=== PATIENT | female | born 1975 | race Caucasian/White ===

== ENCOUNTER 2016-09-03 20:14 | Emergency (ER) | payer BC, MEDICAID ==
[~2016-09-03] VITALS: Ht 162.6 cm; Wt 77.0 kg
[2016-09-03 20:14] VITALS: Ht 162.6 cm; Wt 77.0 kg
[~2016-09-03 20:14] MED LIST: ALPR1TAB2 PO; BUTA-253 PO; IBUP-1724 PO; LIRA0.6P PO; ONDA4TAB7 PO
--- NOTE | 2016-09-03 20:26 | ERPDOC ---
Departure Disposition Decision Date: Sep 03, 2016 Disposition Decision Time: 20:27 Disposition: 01 DISCHARGED HOME, SELF-CARE Impression Impression Impression: Primary Impression: Carpal tunnel syndrome on both sides Additional Impressions: Tendinitis of extensor tendon of left hand Tendinitis of extensor tendon of right hand Severity: Moderate Condition: Improved Seen By: Physician only Referrals: MARIA EUGENIA BELLO (Family) Patient Instructions: Carpal Tunnel Syndrome (GEN), Carpal Tunnel Syndrome Exercises (GEN) Problems/Meds/Labs Reviewed?: Yes Medications reviewed and manag: Yes Additional Instructions: Meloxicam 15 mg, one tablet daily for baseline pain control Use Tylenol up to 1000 mg 4 times daily in addition for pain Wear wrist braces at all times, both sleeping and for activities. May remove for bathing daily Follow up with your doctor in one week for recheck Follow up care ordered?: Yes Mental Status: Alert Scripts Meloxicam (Meloxicam) 15 Mg Tablet 15 MG PO DAILY, #30 TAB Prov: MIREILLE TRUJILLO MD 09/03/16 HPI General Chief Complaint: Upper Extremity Pain Stated Complaint: HAND PAIN Time Seen by Provider: 20:15 Source: patient Exam Limitations: no limitations HPI Hand/Forearm Initial Comments 4 day history of bilateral carpal tunnel pain with radiation and burning as well as paresthesia into the fingertips and up the lateral aspect of the arm. Patient works as a supplier specialist, as well as epigastric, does a lot of gripping and extending of the fingers as well as extensive work on a keyboard. Occurred At: home Onset: Gradual Severity: moderate Location: bilateral: forearm, wrist 1 - Radiation 2 - Radiation 1 - Pain with burning 2 - Pain with burning 3 - Radiation 4 - Radiation Associated Symptoms: pain with extension, pain with flexion, pain with grasp, DENIES: bruising, numbness, pallor, red streaks, redness, swelling, weakness Allergies: Coded Allergies: acetaminophen (Verified Allergy, Severe, HIVES, 11/05/15) hydrocodone (Verified Allergy, Severe, HIVES, 11/05/15) Past History Patient Surgical History partial hysterectomy total hysterectomy cholecystectomy Past Medical History Metabolic: diabetes, hypercholesterolemia, hypertension Respiratory: asthma GI: gallbladder disease Musculoskeletal: rheumatoid arthritis Integumentary: psoriasis Psychological: anxiety Surgical History General: gallbladder Reproductive/: hysterectomy Family History Family PMH: FOUND: CAD, [place] Social History Tobacco Usage: smoke # of Packs/Tins per Day: 0.5 Alcohol Usage: none Drug Usage: none IV Drug Use: No Sexuality: male partner Residence: home Review of Systems Constitutional Constitutional: DENIES: appetite decrease, appetite increase, chills, dizziness , fever, weakness ENMT Ears: DENIES: pain Hearing: DENIES: hearing loss, tinnitus Balance: DENIES: vertigo Mouth/Throat: DENIES: change in swallowing, change in voice, hoarsness, painful swallowing, sore throat Cardiovascular Cardiac: DENIES: chest pain, dyspnea on exertion Rhythm/Rate: DENIES: irregular beat, palpitations, tachycardia Vascular: DENIES: pedal edema Pulmonary Respiratory: DENIES: cough, dyspnea, pleuritic chest pain GI Upper Abdomen: DENIES: dysphagia, heartburn/indigestion, nausea, pain, vomiting Lower Abdomen: DENIES: blood in stool, constipation, diarrhea, pain General: DENIES: burning, dysuria, frequency, pain, urgency Musculoskeletal General: cramps, pain, tenderness, DENIES: joint pain, joint swelling, weakness Integumentary Skin: DENIES: rash, sores Exam General General Nourishment: well nourished, well developed, appears stated age, no acute distress General Body Habitus: well groomed Vital Signs: RN Vital Signs have been reviewed: Yes Height (Feet): 5 Height (Inches): 5.00 [place]rak Hand/Forearm Comments Patient has tenderness in the bilateral carpal tunnel, palpation over this area reproduces the patient's symptoms. Symptoms are also reduced with passive wrist extension, increased with passive Patient has tenderness at the insertion of the extensor tendons at the elbow as well, and palpation reproduces the lateral forearm pain. Patient is neurovascularly intact, good cap refill, inch of motion sensation he flexes in the extremities, pulses. Neurologic (brief) Neurological Brief: FOUND: CN w/o gross def to obs, gait w/o gross def to obs, motor-no gross deficits, sensory-no gross deficits, NOT FOUND: ataxia Neurologic RN Documented GCS Eye Opening: Verbal: Motor: Total: Progress Progress Progress Patient appears to have combined carpal tunnel bilaterally with extensor tendinitis use. Patient is given Toradol, Norflex, dexamethasone IM, placed in wrist splints, struck did on home care with ox cam 15 mg, and Tylenol when necessary MIREILLE TRUJILLO MD Sep 03, 2016 20:26
[2016-09-03] MEDS ORDERED: MELO-267 PO (20:30)
[2016-09-03] MEDS ORDERED: KETOROLAC 30mg/ml INJECTION IM ONE (20:30)
[2016-09-03] MEDS ORDERED: DEXAMETHASONE 4mg/ml - 1ml INJECTION IM ONE (20:30)
[2016-09-03] MEDS ORDERED: ORPHENADRINE 60mg/2ml INJECTION IM ONE (20:30)
[2016-09-03] MEDS ORDERED: KETOROLAC 60mg/2ml INJECTION IM ONE (21:00)
[2016-09-03 21:02] VITALS: BP 117/75; PULSE 74; RESP 15; TEMP 97.1; O2SAT 97
--- NOTE | 2016-09-03 21:02 | NUR ---
DISCHARGE WRITTEN INSTRUCTIONS WITH [facility] REVIEWED AND SENT WITH PT. PT VERBALIZES UNDERSTANDING OF DI AND MEDICATION, DENIES QUESTIONS. PT AMBULATES OUT OF ER WITH STEADY GAIT AT THIS TIME.
== END 2016-09-03 21:02 | disposition home or self-care (01) ==
LOC: ED 20:14
DX: G56.03 Carpal tunnel syndrome, bilateral upper limbs (principal); M77.9 Enthesopathy, unspecified
CPT/HCPCS: 96372; 99283; J1100; J1885; J2360

== ENCOUNTER 2016-10-24 15:28 | Emergency (ER) | payer MEDICAID ==
[~2016-10-24] VITALS: Ht 162.6 cm; Wt 77.8 kg
[~2016-10-24 15:28] MED LIST changes: -ONDA4TAB7 PO
[2016-10-24 15:32] VITALS: Ht 162.6 cm; Wt 77.8 kg
[2016-10-24] MEDS ORDERED: HYDROMORPHONE 2mg/ml INJECTION IM ONE (16:00)
[2016-10-24] MEDS ORDERED: ORPHENADRINE 60mg/2ml INJECTION IM ONE (16:00)
--- NOTE | 2016-10-24 16:04 | ERPDOC ---
Departure Disposition Decision Date: October 24, 2016 Disposition Decision Time: 16:33 (ALVINO,ADEEL N [employer]ER) Disposition: 01 DISCHARGED HOME, SELF-CARE Impression Impression (ALVINO,ADEEL Arreaga APRN) Impression: Primary Impression: Migraine Qualified Codes: G43.909 - Migraine, unspecified, not intractable, without status migrainosus Severity: Moderate (NOLEEANNE,ADEEL N [employer]ER) Condition: Stable Seen By: Mid-level only (CALLIEADEEL APRN) Referrals: MARIA EUGENIA BELLO (Family) Patient Instructions: Migraine Headache (ED) Problems/Meds/Labs Reviewed?: Yes Medications reviewed and manag: Yes (NOLEEANNE,ADEEL N [employer]AKER) Additional Instructions: Go home and rest in a quiet and dark room. Make sure to monitor your blood sugars at home. If you have any further issues/concerns then return to Er. Follow up care ordered?: Yes Mental Status: Alert (NOLEEANNE,ADEEL N [employer]) HPI - Headache General Chief Complaint: Headache Stated Complaint: HEADACHE,SHAKING Time Seen by Provider: 15:53 Source: patient Exam Limitations: no limitations (ALVINO,ADEEL N [employer]ER) Time Seen by Provider: 15:53 (ONEL GARCIA DO) HPI - Headache Initial Comments She has a history of migraines. Woke up with a headache this morning. Did take some Ibuprofen this morning and then went to go enroll her daughter in college. She did go eat lunch at [employer] and while she was there she was having some shaking which concerned her. She is diabetic but is not use insulin. She did eat and is feeling better overall. She denies any fever or chills. This headache is like her usual headaches. Occurred At: home Onset: Gradual Duration: 4-6 hrs Severity/Quality: moderate Location: frontal Prior Headaches/Recent Trauma: no recent headache/trauma, occasional headaches Associated Symptoms: DENIES: confusion, facial pain, fatigue, fever/chills, flushing, loss of consciousness, nasal congestion, nasal drainage, nausea/ vomiting, numbness in legs/feet, rash, seizures, sinus infection, stiff neck, vision changes, weakness Hx of Similar Symptoms: No (NOLD,ADEEL N [employer]ER) Allergies: Coded Allergies: acetaminophen (Verified Allergy, Severe, HIVES, 11/05/15) hydrocodone (Verified Allergy, Severe, HIVES, 11/05/15) Past History Patient Surgical History partial hysterectomy total hysterectomy cholecystectomy (NOLD,ADEEL N [employer]ER) Past Medical History Metabolic: diabetes, hypercholesterolemia, hypertension Respiratory: asthma GI: gallbladder disease Musculoskeletal: rheumatoid arthritis Integumentary: psoriasis Psychological: anxiety (NOLD,ADEEL N [employer]ER) Surgical History General: gallbladder Reproductive/: hysterectomy (NOLD,ADEEL N [employer]ER) Family History Family PMH: FOUND: CAD, [place] (NOLD,ADEEL N [employer]AKER) Social History # of Packs/Tins per Day: 0.5 Sexuality: male partner (NOLD,ADEEL N [employer]) Review of Systems Constitutional Constitutional: DENIES: chills, dizziness, fatigue, fever, weakness (NOLD, ADEEL N [employer]ER) Eyes Vision: DENIES: blurring, double vision (NOLD,ADEEL N [employer]ER) ENMT Ears: DENIES: drainage, pain Sinuses: DENIES: congestion, rhinorrhea Mouth/Throat: DENIES: painful swallowing, scratchy throat, sore throat (NOLD, ADEEL N [employer]ER) Cardiovascular Cardiac: DENIES: chest pain, orthopnea Rhythm/Rate: DENIES: irregular beat, palpitations (NOLD,ADEEL N [employer]ER) Pulmonary Respiratory: DENIES: cough, dyspnea, sputum (NOLD,ADEEL N [employer]ER) GI Upper Abdomen: DENIES: nausea, pain, vomiting Lower Abdomen: DENIES: constipation, diarrhea, pain (NOLD,ADEEL N [employer]ER) Integumentary Skin: DENIES: rash (NOLD,ADEEL N [employer]ER) Neurological General: headache, DENIES: numbness, tingling, weakness (NOLD,ADEEL N [employer]) Physical Exam General General Nourishment: well nourished, well developed, appears stated age, no acute distress, adult General Body Habitus: well groomed (NOLD,ADEEL N [employer]) Vitals and Pain First Documented Vital Signs Date Time Temp Pulse Resp B/P Pulse Ox O2 Delivery O2 Flow Rate FiO2 10/24/16 15:32 98.1 75 15 122/73 96 Room Air (ONEL GARCIA DO) Vitals and Pain Weight: Kilograms: 77.800 Height (feet): 5 Height (inches): 4.00 Triage Pain Scale: (ADEEL DE OLIVEIRA APRN) RN VS reviewed by Provider: Yes (ADEEL DE OLIVEIRA APRN) Normal Exams: Neck: Full range of motion, without adenopathy, JVD, bruits or thyromegaly Chest/Resp: Clear all jackson, with good airflow, and symmetry bilaterally CV: Regular rate and rhythm, without murmur or gallop, Pulses 2+ all extremities, capillary refill, <2 seconds all ext., no pedal edema noted Abdomen: Bowel sounds positive, soft, non-tender, non-distended, no hepatosplenomegaly, masses or bruits noted Lymphatic: No lymphadenopathy, or lymphedema noted Integumentary: No rashes, hives, or bruising noted Neurologic: Patient is alert, and oriented Psychiatric: Patient exhibits, appropriate attention, emotion and affect (ADEEL DE OLIVEIRA APRN) Differential Diagnoses Considering: Headache, Headache - Migraine, Headache - Tension/Muscle, Hypertensive Emergency, Sinusitis - Sphenoid, Sinusitis - Maxillary, Sinusitis - Frontal, Other (hypoglycemia) (ADEEL DE OLIVEIRA APRN) Progress Results/Orders Orders Procedure Category Date Status Time Hydromorphone PHA 10/24/16 Complete (Dilaudid) 16:00 Orphenadrine (Norflex) PHA 10/24/16 Complete 16:00 (ONEL GARCIA DO) Lab Results Laboratory Tests Test 10/24/16 15:41 Glucometer 97mg/dL (OENL GARCIA DO) Medications Current ED Medications Hydromorphone HCl (Dilaudid) 0.5 mg O ONCE IM Last administered on 10/24/16 16:16; Start 10/24/16 at 16:00; Stop 10/24/16 at 16:01; Status DC Orphenadrine Citrate (Norflex) 60 mg O ONCE IM Last administered on 10/24/16 16:15; Start 10/24/16 at 16:00; Stop 10/24/16 at 16:01; Status DC (ONEL GARCIA DO) Progress Progress Her migraine is improved. Is ready to go home. Will have her check her blood sugars at home as I do think she has some hypoglycemia. Her BGM was only 97 upon arrival to ER and she had just eaten lunch. (ADEEL DE OLIVEIRA APRN) ADEEL DE OLIVEIRA APRN October 24, 2016 16:04 ONEL GARCIA DO October 24, 2016 17:46
[2016-10-24] MEDS ORDERED: SERT50TA12 PO (16:21)
[2016-10-24 16:50] VITALS: BP 115/75; PULSE 68; RESP 14; TEMP 97.9; O2SAT 97
--- NOTE | 2016-10-24 16:52 | NUR ---
PT STATUS PT STATES SHE IS FEELING MUCH BETTER, HEADACHE IS A 5/10 AND SHE FEELS LIKE SHE COULD GO HOME AND NAP.
== END 2016-10-24 16:50 | disposition home or self-care (01) ==
LOC: ED 15:28
DX: G43.909 Migraine, unspecified, not intractable, without status migrainosus (principal); E11.9 Type 2 diabetes mellitus without complications
CPT/HCPCS: 82948; 96372; 99283; J1170; J2360